=== PATIENT | male | born 1940 | race Caucasian/White ===

== ENCOUNTER 2017-08-25 18:39 | Emergency (ER) | payer OTHER ==
[~2017-08-25] VITALS: Ht 175.3 cm; Wt 103.9 kg
[~2017-08-25 18:39] MED LIST: AMOXICILLIN875 MG PO; ASPIR 8181 M1 PO; CILOSTAZOL100 MG PO; Coumadin,Jantoven PO; Diflucan PO; FLOMAX0.4 MG PO; Feosol PO; Hydrodiuril,Oretic,E PO; LIPITOR20 MG PO; LOPRESSOR100 M1 PO; MICROZIDE12.5 M1 PO; NORCO 5/3251 TABLET PO; NORVASC5 MG PO; Norvasc PO; PROSCAR5 MG PO; Pletal PO; SPIRIVA1 INHALATI IH; Senokot S,Pericolace PO; TRILIPIX135 MG PO; Toprol XL PO; VENTOLIN HFA18 GM IH; Vicodin,Norco 5/325 PO; WELCHOL625 MG PO; predniSONE PO
[2017-08-25 19:00] LABS: HEMATOCRIT 39.7 % (38.0-50.0); HEMOGLOBIN 13.8 G/DL (12.5-16.6); MCH 30.7 PG (29.0-34.0); MCHC 34.8 G/DL (30.0-36.0); MCV 88.4 FL (86-99); PLATELET COUNT 185 K/uL (156-360); RBC DIS.WIDTH-CV 13.9 % (11.8-14.6); RBC DIS.WIDTH-SD 45.3 % (39-53); RED BLOOD COUNT 4.49 M/uL (4.00-5.50); WHITE BLOOD COUNT 8.1 K/uL (4.1-10.2)
[2017-08-25 19:11] LABS: CHLORIDE 107 mEq/L (99-109); POTASSIUM 3.7 mEq/L (3.7-5.4); SODIUM 141 mEq/L (136-147)
[2017-08-25 19:13] LABS: GLUCOSE 167 mg/dL (70-99)
[2017-08-25 19:17] LABS: CREATININE 1.8 mg/dL (0.6-1.3); GFR ESTIMATE (CALCULATED) 39 mL/min/ (58.99-99999)
[2017-08-25 19:18] LABS: UREA NITROGEN (BUN) 25 mg/dL (9-23)
[2017-08-25 23:40] VITALS: BP 144/53
== END 2017-08-25 23:40 | disposition home or self-care (01) ==
LOC: EME 18:39
DX: N50.1 Vascular disorders of male genital organs (principal); N43.3 Hydrocele, unspecified; L72.0 Epidermal cyst; J44.9 Chronic obstructive pulmonary disease, unspecified; Z87.442 Personal history of urinary calculi; Z79.82 Long term (current) use of aspirin; Z87.891 Personal history of nicotine dependence
CPT/HCPCS: 76870; 80048; 81003; 85027; 99281; 99283

== ENCOUNTER 2018-01-17 21:36 | Emergency (ER) | payer OTHER ==
[~2018-01-17] VITALS: Ht 175.3 cm; Wt 102.6 kg
[2018-01-17 22:33] VITALS: BP 143/66
== END 2018-01-17 22:33 | disposition home or self-care (01) ==
LOC: EME 21:36
PROC: 09C3XZZ Extirpation of Matter from Right External Auditory Canal, External Approach (ICD-10-PCS; principal; 2018-01-17)
DX: T16.1XXA Foreign body in right ear, initial encounter (principal)
CPT/HCPCS: 99281; 99282